=== PATIENT | female | born 1960 ===

== ENCOUNTER → 2018-09-12 | Outpatient (CLI) | payer OTHER ==
--- NOTE | 2018-09-12 21:13 | Diagnostic Imaging Report ---
Digital mammogram bilateral diagnostic with 3D tomosynthesis. The current study was also evaluated with a Computer Aided Detection (CAD) system. This is the patient's baseline study. At this time, she does complain of pain in the superior aspect of the left breast. A marker was placed in the area of concern. There is no abnormality in this area to indicate a cause for the patient's pain. Even so, I would recommend that ultrasound be performed for further study. The fibroglandular tissue in both breasts is heterogeneously dense. This does limit the sensitivity of this exam. There is no primary or secondary sign of malignancy noted. IMPRESSION: There is no evidence of malignancy, and there is no acute abnormality to account for the patient's left breast pain. Ultrasound of the left breast would be recommended for further study. ACR BI-RADS Category 0: Incomplete. (Needs additional imaging evaluation). Result letter will be mailed to the patient. Note: At least 10% of breast cancer is not imaged by mammography. Dictated by: Dictated on workstation # [id number]
--- NOTE | 2018-09-12 21:19 | Diagnostic Imaging Report ---
EXAMINATION: Ultrasound of the left breast limited. INDICATION: Left breast pain. FINDINGS: The diagnostic mammogram performed earlier today failed to show any sign of malignancy or an acute abnormality. On this study, there is no discrete solid or cystic mass within the left breast in the area of the patient's pain. There is no sign of an abscess either. IMPRESSION: There is no evidence for malignancy or for an acute abnormality. Clinical follow-up is recommended. ACR BI-RADS Category 1: Negative. Dictated by: Dictated on workstation # [id number]
== END ==
LOC: RAD 08:07
PROVIDERS: ATTEND Nurse Practitioner Community Health
DX: N64.4 Mastodynia (principal)
CPT/HCPCS: 76642; 77066